=== PATIENT | male | born 1955 | race Caucasian/White ===

== ENCOUNTER → 2016-12-02 | Outpatient (CLI) | payer OTHER ==
[2016-12-02 10:09] LABS: CH 33.9; CHCM 36.9; HDW 3.01; HGB 14.9 gm/dL (13.0-17.5); MCH 32.8 pg (25.0-35.0); MCHC 35.6 g/dL (31.0-37.0); MCV 92.4 fL (80.0-100.0); Mean Platelet Volume 8.5; RBC 4.55 m/uL (4.30-5.90); RDW 14.2 % (11.5-15.5)
[2016-12-02 10:26] LABS: Anion Gap 10 mmol/L; Blood Urea Nitrogen 12 mg/dL (9-20); Carbon Dioxide 25 mmol/L (22-30); Chloride 105 mmol/L (98-107); Non-African American GFR(MDRD) >60 (>60 ml/min/1.73 sqM); Potassium 4.6 mmol/L (3.5-5.1); Sodium 140 mmol/L (137-145)
== END | disposition home or self-care (01) ==
LOC: LABPAT 09:42
PROVIDERS: ATTEND Internal Medicine Interventional Cardiology
DX: Z01.812 Encounter for preprocedural laboratory examination (principal); I25.10 Atherosclerotic heart disease of native coronary artery without angina pectoris
CPT/HCPCS: 36415; 80051; 82565; 84520; 85027

== ENCOUNTER → 2016-12-05 | Day surgery (SDC) | payer OTHER ==
[2016-11-29 12:57] VITALS: BMI 32.6
[~2016-12-05] MED LIST: ALPRAZolam 0.25 MG TAB PO PRN; ALPRAZolam 0.5 MG TAB PO PRN; ASPIRIN 325 MG TAB PO STA; ATORVASTATIN 40 MG TAB PO SCH; ATORVASTATIN 80 MG TAB PO STA; HEPARIN SODIUM 1,000 UN/ML (10ML VL) ONE; INSULIN LISPRO (humaLOG) 300 UNIT/3 ML VIAL SQ SCH; IOHEXOL 350 MG/ML 125ML BOTTLE INJ ONE; LIDOCAINE 2% INJ 20 MG/ML (20 ML MDV) ONE; LIDOCAINE 2% INJ 20 MG/ML SQ ONE; LISINOPRIL 10 MG TAB PO SCH; METOPROLOL SUCCINATE (ER) 50 MG TAB.ER.24H PO SCH; NITROGLYCERIN SL TABS 0.4 MG TAB SUBLINGUAL PRN; NON-FORMULARY DRUG (Aspirin [Adult Low Dose Aspirin Ec] 81 MG) PO SCH; RX INFO: IV CONTRAST WAS GIVEN 1 EACH MISC MISCELLANE PRN; SODIUM CHLORIDE 0.9% 1,000 ML IV SCH; SODIUM CHLORIDE 0.9% 1,000 ML in EMPTY BAG 1 BAG IV ONE; VERAPAMIL 2.5 MG/ML 2 ML AMP ONE; VERAPAMIL SYRINGE (5 MG/10 ML) INTRAARTER ONE; amLODIPine 5 MG TAB PO SCH; diphenhydrAMINE 50 MG/ML 1 ML VIAL IVP ONE; diphenhydrAMINE 50 MG/ML 1 ML VIAL ONE; fentaNYL (PF) 50 MCG/ML 2 ML AMP IV ONE; fentaNYL (PF) 50 MCG/ML 2 ML AMP ONE
[2016-12-05 07:02] VITALS: RESP 18; TEMP 98.4
[2016-12-05 07:12] LABS: Glucose,Whole Blood 222 mg/dL (75-99)
[2016-12-05 12:27] VITALS: BP 120/67; PULSE 54
--- NOTE | 2016-12-05 23:24 | CC ---
Mr. Whiting is a 61-year-old male with a known history of mild coronary artery disease, hypertension, hyperlipidemia, who has recently been complaining of progressive dyspnea on exertion. In view of that, recommendation was made regarding cardiac catheterization. The procedure as well as risks and complications was discussed with the patient, who was in full understanding and agreement. PROCEDURE: Patient was brought to the oven laborer in fasting, semi-sedated state after receiving fentanyl and Benadryl and achieving moderate conscious sedated state. Using Xylocaine anesthesia and Seldinger technique, a 6 Samoan sheath was introduced in the right radial artery. Selective right and left coronary angiography was performed using 5 Samoan, 3-1/2 Bend, right and left Sandi catheters. Multiple views were taken of the arteries, including hemiaxial views. Following that, a 5 Samoan tight pigtail catheter was introduced in the left ventricle, and a 30-degree NICHOLAS view of the left ventricle was obtained. Following that, catheter and sheath were removed. Hemostasis was attained with deployment of a TR band. There was no immediate complication. Patient was returned to his room in stable condition. Patient received 5000 units of intravenous heparin as well as intra-arterial Verapamil. FINDINGS: LEFT MAIN: This is a large-sized vessel trifurcating into left circumflex, left anterior descending artery and ramus intermedius. Left main coronary artery is without any significant obstructive disease. LEFT ANTERIOR DESCENDING ARTERY: This is a large-sized vessel reaching toward the apex with a wrap around the apex segment giving rise to a large first diagonal branch. The LAD prior to the takeoff of the diagonal branch has a 30% to 40% plaque, and the takeoff of the diagonal branch has a 30% plaque. The rest of the vessel has no high-grade stenosis. LEFT CIRCUMFLEX: This is a non-dominant vessel giving rise to a large obtuse marginal branch. The left circumflex as well as its branches has no evidence of obstructive coronary artery disease. RAMUS INTERMEDIUS: This is a large-sized vessel reaching toward the apicolateral wall. The ramus intermedius as well as its branches has no evidence of obstructive coronary artery disease. RIGHT CORONARY ARTERY: This is a large dominant vessel bifurcating distally into PDA and posterolateral segment and branches. The right coronary artery as well as its branches has no evidence of obstructive coronary artery disease. LEFT VENTRICULOGRAM: Left ventriculogram was performed in 30-degree NICHOLAS view and revealed normal left ventricular size and systolic function. Ejection fraction is 60%. There was no significant mitral regurgitation. HEMODYNAMICS: There was no gradient across the aortic valve. The left ventricular end-diastolic pressure was 18 mmHg. CONCLUSION: 1. Mild to moderate disease in the proximal LAD and involving the takeoff of the first diagonal branch. 2. Normal left ventricular size and systolic function. RECOMMENDATIONS: In view of findings and anatomy, I have recommended continued medical therapy with aggressive coronary risk modifications that have been initiated. Those findings and recommendations were discussed with the patient and his family, and they are in full understanding and agreement. ARIN
--- NOTE | 2016-12-05 23:34 | MISC ---
LETTER December 05, 2016 RE: Víctor Whiting (57) Dear Dr. Codey Magdaleno, I had the pleasure of performing cardiac catheterization on Mr. Whiting at [facility] on December 05, 2016. A full copy of the procedure note will be forwarded to you. In brief, he was found to have mild to moderate disease involving the proximal LAD with a normal left ventricular size and systolic function. In view of that, I have recommending continued medical therapy with the aggressive coronary risk modifications you have initiated. Thank you again for allowing me to participate in this patient's care. Please feel free to call with any questions. Sincerely, Neha Pedraza M.D. ARIN
== END | disposition home or self-care (01) ==
LOC: CATHCVL 06:36
PROVIDERS: ATTEND Internal Medicine Interventional Cardiology
DX: I25.118 Atherosclerotic heart disease of native coronary artery with other forms of angina pectoris (principal); I10 Essential (primary) hypertension; E78.2 Mixed hyperlipidemia; E11.9 Type 2 diabetes mellitus without complications; Z79.84 Long term (current) use of oral hypoglycemic drugs; Z82.49 Family history of ischemic heart disease and other diseases of the circulatory system; Z88.8 Allergy status to other drugs, medicaments and biological substances
CPT/HCPCS: 93458; 99152; 99153; C1894; C1769; J2001; J1200; J3010; J1644; Q9967

== ENCOUNTER → 2017-03-04 | Outpatient (CLI) | payer OTHER ==
[2017-03-04 14:58] LABS: Basophils # (A) 0.1 k/uL (0-0.2); Basophils % (A) 1 %; CH 32.7; CHCM 35.1; Eosinophils # (A) 0.2 k/uL (0-0.7); Eosinophils % (A) 3 %; HCT 44.1 % (39.0-53.0); HDW 2.83; HGB 14.8 gm/dL (13.0-17.5); Luc # (Auto) 0.14; Luc % (Auto) 2; Lymphocytes # (A) 2.7 k/uL (1.0-4.8); Lymphocytes % (A) 33 %; MCH 31.5 pg (25.0-35.0); MCHC 33.6 g/dL (31.0-37.0); MCV 93.7 fL (80.0-100.0); Mean Platelet Volume 7.9; Monocytes # (A) 0.5 k/uL (0-1.0); Monocytes % (A) 6 %; Neutrophils # (A) 4.6 k/uL (1.3-7.7); Neutrophils % (A) 56 %; RDW 14.3 % (11.5-15.5); WBC 8.2 k/uL (3.8-10.6); WBC (Perox) 8.42
[2017-03-04 15:05] LABS: Potassium 4.8 mmol/L (3.5-5.1)
== END | disposition home or self-care (01) ==
LOC: LABPAT 13:59
PROVIDERS: ATTEND Orthopaedic Surgery
DX: Z01.810 Encounter for preprocedural cardiovascular examination (principal); M23.92 Unspecified internal derangement of left knee
CPT/HCPCS: 36415; 80051; 85025

== ENCOUNTER 2017-03-06 11:18 | Day surgery (SDC) | payer OTHER ==
[2017-03-03 13:31] VITALS: BMI 31.9
--- NOTE | 2017-03-05 15:23 | HP ---
HISTORY AND PHYSICAL REASON FOR ADMISSION: Surgery is 03/06/2017. HISTORY OF PRESENT ILLNESS: Víctor Whiting is a 61-year-old patient seen with progressive left knee pain. We discussed options. He elected to proceed with arthroscopy. Consent was obtained. PAST MEDICAL HISTORY: Hyperlipidemia, hypertension, [id number] diabetes. PAST SURGICAL HISTORY: Herniorrhaphy, right knee arthroscopy, cataract surgery, sinus surgery. MEDICATIONS: Amlodipine, aspirin, atorvastatin, lisinopril, metformin, metoprolol. ALLERGIES: COMPAZINE. SOCIAL HISTORY: Patient denies current tobacco use. PHYSICAL EXAMINATION: Evaluation left knee range of motion 0-120 degrees. There is a mild effusion. Tenderness medial joint line. Positive medial Paco's. Ligaments are stable. Hip rotation is without pain. Distal neurovascular exam is intact. RADIOGRAPHS: Of the left knee revealed moderate osteoarthritis. MRI left knee revealed osteoarthritis and a chondral injury. IMPRESSION: Internal derangement left knee with osteochondral tear. PLAN: Left knee arthroscopy with chondroplasty, possible partial meniscectomy and debridement. Surgery 03/06/2017. MMODL / IJN: [id number] /
[~2017-03-06 11:18] MED LIST changes: -ALPRAZolam 0.25 MG TAB PO PRN; -ALPRAZolam 0.5 MG TAB PO PRN; -ASPIRIN 325 MG TAB PO STA; -ATORVASTATIN 40 MG TAB PO SCH; -ATORVASTATIN 80 MG TAB PO STA; +DEXAMETHASONE SOD PHOSPHATE 10 MG/ML 1 ML VIAL IV ONE; -HEPARIN SODIUM 1,000 UN/ML (10ML VL) ONE; +HYDROmorphone 1 MG/ML 1 ML SYRINGE IVP PRN; -INSULIN LISPRO (humaLOG) 300 UNIT/3 ML VIAL SQ SCH; -IOHEXOL 350 MG/ML 125ML BOTTLE INJ ONE; +LACTATED RINGERS 1,000 ML IV SCH; -LIDOCAINE 2% INJ 20 MG/ML (20 ML MDV) ONE; -LIDOCAINE 2% INJ 20 MG/ML SQ ONE; -LISINOPRIL 10 MG TAB PO SCH; -METOPROLOL SUCCINATE (ER) 50 MG TAB.ER.24H PO SCH; +MIDAZOLAM 2 MG/2 ML VIAL IV PRN; -NITROGLYCERIN SL TABS 0.4 MG TAB SUBLINGUAL PRN; -NON-FORMULARY DRUG (Aspirin [Adult Low Dose Aspirin Ec] 81 MG) PO SCH; +ONDANSETRON 4 MG/2 ML VIAL IVP ONE; -RX INFO: IV CONTRAST WAS GIVEN 1 EACH MISC MISCELLANE PRN; +SCOPOLAMINE 1.5MG/72HR PATCH TRANSDERM ONE; -SODIUM CHLORIDE 0.9% 1,000 ML IV SCH; -SODIUM CHLORIDE 0.9% 1,000 ML in EMPTY BAG 1 BAG IV ONE; -VERAPAMIL 2.5 MG/ML 2 ML AMP ONE; -VERAPAMIL SYRINGE (5 MG/10 ML) INTRAARTER ONE; -amLODIPine 5 MG TAB PO SCH; +ceFAZolin IN SWFI 2 GM/20 ML SYRINGE IVP ONE; -diphenhydrAMINE 50 MG/ML 1 ML VIAL IVP ONE; -diphenhydrAMINE 50 MG/ML 1 ML VIAL ONE; -fentaNYL (PF) 50 MCG/ML 2 ML AMP IV ONE; -fentaNYL (PF) 50 MCG/ML 2 ML AMP ONE
[2017-03-06] MEDS ORDERED: LIDOCAINE 1% 20 ML VIAL (10MG/ML) FOR IV START INTRADERMA ONE (11:39)
[2017-03-06 11:53] LABS: Glucose,Whole Blood 234 mg/dL (75-99)
[2017-03-06] MEDS ORDERED: INSULIN ASPART 100 UNIT/ML 1 ML 10 ML VIAL SQ ONE (12:01)
[2017-03-06] MEDS ORDERED: fentaNYL (PF) 50 MCG/ML 2 ML AMP ONE (12:03)
[2017-03-06] MEDS ORDERED: SUCCINYLCHOLINE CHLORIDE 100 MG/5 ML SYR IV ONE (12:03)
[2017-03-06] MEDS ORDERED: PROPOFOL 10 MG/ML 20 ML VIAL IV ONE (12:03)
[2017-03-06] MEDS ORDERED: MIDAZOLAM 2 MG/2 ML VIAL ONE (12:03)
[2017-03-06] MEDS ORDERED: BUPIVACAINE (PF) 0.25% 30 ML VIAL INTRAARTIC ONE ×2 (12:03→12:44)
[2017-03-06] MEDS ORDERED: LIDOCAINE 1% INJ 10MG/ML (20 ML MDV) ONE (12:03)
--- NOTE | 2017-03-06 13:00 | P.OP ---
Date of Procedure: 03/06/17 Preoperative Diagnosis: Internal derangement left knee Postoperative Diagnosis: 1. Tear medial and lateral meniscus left knee 2. Grade 4 chondromalacia medial femoral condyle left knee 3. Grade 4 chondromalacia patella left knee 4. Reactive synovitis medial, lateral and suprapatellar compartments left knee Procedure(s) Performed: 1. Arthroscopic partial medial and lateral meniscectomy left knee 2. Arthroscopic chondroplasty medial femoral condyle left knee 3. Arthroscopic chondroplasty patella left knee 4. Arthroscopic partial synovectomy medial, lateral and suprapatellar compartments left knee Implants: None Anesthesia: GETA, local Surgeon: Jarred Contreras Estimated Blood Loss (ml): 5 Pathology: none sent Condition: stable Disposition: PACU Indications for Procedure: 61-year-old patient seen with progressive left knee pain. After having treatment options discussed, he elected to proceed with arthroscopy. Operative Findings: see description of procedure Description of Procedure: Patient was taken to the operative suite. Patient underwent a general anesthetic by the department of anesthesia. Patient was given preoperative antibiotics. The left lower extremity was placed in a well-padded arthroscopic leg heath. The left leg was prepped and draped in the normal sterile orthopedic fashion. A lateral parapatellar and suprapatellar incision was made. Trochars were inserted. Arthroscopy was initiated. Suprapatellar pouch revealed diffuse thick reactive synovitis. The patellofemoral joint appeared to articulate congruently. There was grade 4 chondromalacia of the patella with osteochondral tears and grade 4 chondral malacia of the femoral sulcus with exposed bone. The scope was guided into the medial gutter. No loose bodies or plica were identified. The scope was then guided into the medial compartment. A medial parapatellar incision was made. Trocar inserted followed by probe. There was a complex tear posterior horn medial meniscus. There were grade 3 and 4 chondromalacia changes of the medial femoral condyle with diffuse osteochondral tears present. There were grade 2 chondral malacia changes of the medial tibial plateau. Reactive synovitis was noted anteriorly. I performed a partial medial meniscectomy down to stable tissue. A chondroplasty of the medial femoral condyle was performed on a stable tissue followed by partial synovectomy. The residual meniscus was stable as was the residual osteochondral surface medial femoral condyle. Scope and probe were then guided into the intercondylar notch. Cruciates were identified, probed and found to be stable. The scope and probe were then guided into lateral compartment. There was a complex tear lateral meniscus involving the posterior horn and midbody as well as some diffuse radial tears anteriorly. There were grade 1 chondromalacia changes of the lateral femoral condyle but no osteochondral tears. Reactive synovitis anteriorly. I performed a partial lateral meniscectomy down to stable tissue. I performed a partial synovectomy. The residual meniscus was stable. The scope was in guided back into the suprapatellar compartment. I introduced a motorized shaver into the super patellar compartment. I debrided some piecemeal fragments of meniscus. I performed a chondroplasty of the patella down to stable tissue. I performed a partial synovectomy. The shaver was removed. I took one more look around the entire knee, no residual debris. Instruments were now removed from the joint. The joint was infiltrated with .25% Marcaine. Steri-Strips were applied to the portal sites. Sterile dressings were applied. The patient was placed into a JACKIE hose. No tourniquet was utilized. The patient was awakened, transferred to a bed and taken to recovery stable satisfactory condition.
[2017-03-06 13:08] VITALS: TEMP 97
[2017-03-06 13:13] LABS: Glucose,Whole Blood 186 mg/dL (75-99)
[2017-03-06 14:17] VITALS: RESP 18
[2017-03-06] MEDS ORDERED: HYDROcodone/APAP 5-325MG 1 EACH TAB PO ONE (14:30)
[2017-03-06 14:39] VITALS: BP 139/76; PULSE 73
== END 2017-03-06 15:11 | disposition home or self-care (01) ==
LOC: OR 11:18
PROVIDERS: ATTEND Orthopaedic Surgery
DX: S83.232A Complex tear of medial meniscus, current injury, left knee, initial encounter (principal); S83.272A Complex tear of lateral meniscus, current injury, left knee, initial encounter; X58.XXXA Exposure to other specified factors, initial encounter; M94.262 Chondromalacia, left knee; M22.42 Chondromalacia patellae, left knee; M65.862 Other synovitis and tenosynovitis, left lower leg; M25.462 Effusion, left knee; M17.12 Unilateral primary osteoarthritis, left knee; E78.5 Hyperlipidemia, unspecified; I10 Essential (primary) hypertension; E11.9 Type 2 diabetes mellitus without complications; I25.10 Atherosclerotic heart disease of native coronary artery without angina pectoris; G47.30 Sleep apnea, unspecified; Z79.84 Long term (current) use of oral hypoglycemic drugs; Z79.82 Long term (current) use of aspirin; Z79.899 Other long term (current) drug therapy; Z88.8 Allergy status to other drugs, medicaments and biological substances
CPT/HCPCS: 29880; J2250; J1100; J2405; J2001; J3010; J0330; J2704

== ENCOUNTER → 2017-08-29 | Outpatient (CLI) | payer BC ==
--- NOTE | 2017-08-29 12:41 | CT ---
EXAMINATION TYPE: CT soft tissue neck wo con DATE OF EXAM: 08/29/2017 HISTORY: Patient complains of left submandibular neck pain (marked by BB). COMPARISON: NONE CT DLP: 719 mGycm. Automated Exposure Control for Dose Reduction was Utilized. TECHNIQUE: CT scan of the neck is performed without contrast, axial images are obtained, coronal and sagittal reformatted images are reviewed. FINDINGS: Evaluation is suboptimal due to lack of enteric contrast was limits evaluation for subtle m ucosal lesions as well as adenopathy. A metallic BB is placed at level of palpable abnormality left submandibular region axial image 50. No worrisome solid or cystic mass or fluid collection is seen at this level. There are some prominent b ut subcentimeter lymph nodes seen adjacent to bilateral submandibular glands. Airway: There is some prominence of the adenoid tonsils in the posterior nasopharynx and prominence o f the palatine tonsils in the posterior oropharynx. Oral pharyngeal airway is patent. Region of epigl ottis and vallecula appears within normal limits. Perform sinuses are felt symmetric and unremarkable . Thyroid gland shows 5 mm calcified nodule right aspect coronal image 51. Trachea is intact. There i s calcified 4 mm nodule posterior right upper lobe axial image 79. Finding presumed on basis of old g ranulomatous disease. Parotid/submandibular glands: Parotid and submandibular glands are symmetric and felt within normal limits. Metallic BB is near level of left submandibular gland. Carotid/Vascular Structures: No significant calcified plaque at carotid bulb level bilaterally. Osseous Structures: There is marked reversal of normal cervical curvature centered mid cervical spine . There is moderate disc space narrowing and spurring C5-C6 level with posterior calcified disc herni ation effacing anterior thecal sac. Other: There is moderate to severe mucosal thickening in the maxillary sinuses. There is evidence of prior surgery at level ostiomeatal complexes. Streak artifact from cavitary fillings is present. There are scattered prominent but subcentimeter lymph nodes throughout the neck. There is no suspicio us greater than 1 cm neck adenopathy identified IMPRESSION: No suspicious mass or adenopathy is seen on noncontrast study to account for patient's s ymptoms of left-sided pain
== END | disposition home or self-care (01) ==
LOC: RADCTMAIN 12:09
PROVIDERS: ATTEND Family Medicine
DX: M54.2 Cervicalgia (principal); R22.1 Localized swelling, mass and lump, neck
CPT/HCPCS: 70490

== ENCOUNTER → 2019-06-08 | Outpatient (CLI) | payer BC ==
--- NOTE | 2019-06-08 08:40 | US ---
EXAMINATION TYPE: US kidneys/renal and bladder DATE OF EXAM: 06/08/2019 COMPARISON: NONE CLINICAL HISTORY: N20.0 Calculus of kidney. History of kidney stones EXAM MEASUREMENTS: Right Kidney: 11.0 x 5.4 x 5.6 cm Left Kidney: 9.9 x 5.6 x 4.6 cm Right Kidney: no evidence of hydronephrosis Left Kidney: cyst upper pole = 0.8 x 0.8cm, probable stone upper pole = 0.6cm Bladder: appears wnl Bilateral Jets seen: no There is no evidence for hydronephrosis at this point in time. IMPRESSION: 1. Nonobstructing nephrolithiasis left kidney. 2. Simple appearing cyst upper pole left kidney.
--- NOTE | 2019-06-08 12:33 | XR ---
KUB HISTORY: Calculus of kidney On KUB submitted on 2 images There are calcifications within the pelvis which may represent phleboliths. Lung bases are clear. The re is no evident bowel obstruction or pneumoperitoneum. Bone mineralization is normal. Bowel gas may obscure detail. IMPRESSION: Nonobstructive bowel gas pattern.
== END | disposition home or self-care (01) ==
LOC: RADUSWWP 06:57
PROVIDERS: ATTEND Surgery
DX: N20.0 Calculus of kidney (principal); N28.1 Cyst of kidney, acquired
CPT/HCPCS: 74018; 76770

== ENCOUNTER → 2020-04-10 | Outpatient (CLI) | payer BC ==
--- NOTE | 2020-04-10 12:24 | US ---
EXAMINATION TYPE: US thyroid st tissue head/neck DATE OF EXAM: 04/10/2020 COMPARISON: NONE CLINICAL HISTORY: R22.1 swelling, R52 pain. intermittent right neck swelling and pain GLAND SIZE: Right Lobe: 5.8 x 2.0 x 2.0 cm Overall Parenchyma: homogenous Left Lobe: 4.2 x 1.8 x 1.8 cm Overall Parenchyma: homogeneous Isthmus Thickness: 0.4 cm NODULES RIGHT: # of nodules measured on right: 1. 0.4 X 0.3 cm calcification LEFT: # of nodules measured on left: 0 ISTHMUS: # of nodules measured in the isthmus: 0 Bilateral neck scanned, normal appearing lymph nodes with largest = 1.1cm on the right IMPRESSION: Focal calcification right thyroid lobe. Otherwise unremarkable study.
== END | disposition home or self-care (01) ==
LOC: RADUSWWP 11:49
PROVIDERS: ATTEND Family Medicine
DX: R22.1 Localized swelling, mass and lump, neck (principal)
CPT/HCPCS: 76536

== ENCOUNTER → 2020-07-10 | Outpatient (CLI) | payer BC ==
--- NOTE | 2020-07-10 15:48 | XR ---
EXAMINATION TYPE: XR KUB DATE OF EXAM: 07/10/2020 COMPARISON: 06/08/2019 HISTORY: Pain kidney stone TECHNIQUE: One view abdominal series FINDINGS: The osseous structures are intact. The bowel gas pattern is nonspecific. Stable calcification the right hemipelvis likely vascular. Renal outlines: No suspicious calcifications overlying the right or left renal outline. The bowel con tent does obscure portions of the outline. IMPRESSION: 1. No definite suspicious calcification.
== END ==
LOC: RADXRMAIN 14:55
PROVIDERS: ATTEND Surgery
DX: N20.0 Calculus of kidney (principal)
CPT/HCPCS: 74018

== ENCOUNTER → 2020-07-31 | Outpatient (CLI) | payer BC ==
--- NOTE | 2020-07-31 09:02 | US ---
EXAMINATION TYPE: US thyroid st tissue head/neck DATE OF EXAM: 07/31/2020 COMPARISON: 04/10/2020 CLINICAL HISTORY: 64-year-old male E04.1 Nontoxic single thyroid nodule. Follow-up exam. TECHNIQUE: Multiple sonographic images of the thyroid gland are obtained. FINDINGS: GLAND SIZE: Right Lobe: 5.5 x 2.0 x 2.0 cm Overall Parenchyma: homogenous Left Lobe: 4.5 x 1.8 x 1.9 cm Overall Parenchyma: homogeneous Isthmus Thickness: 0.3 cm NODULES RIGHT: # of nodules measured on right: 1 1. 0.4 X 0.3 x 0.2 cm, mid , solid or almost completely solid, hyperechoic nodule, which is wider t mauro tall, with smooth margins. Prior size: 0.4 x 0.3cm LEFT: # of nodules measured on left: 0 ISTHMUS: # of nodules measured in the isthmus: 0 Programming Engineer notes: Right lateral neck lymph node seen appears smaller then previous exam at 0.7 x 0.6 x 0.4cm (versus 1.1 cm, previously). IMPRESSION: Borderline thyromegaly. Solitary calcified 4 mm nodule on the right is unchanged. Decreasing size of lymph nodes along the right side of the neck, currently nonenlarged.
== END | disposition home or self-care (01) ==
LOC: RADUSWWP 06:55
PROVIDERS: ATTEND Otolaryngology
DX: E01.0 Iodine-deficiency related diffuse (endemic) goiter (principal)
CPT/HCPCS: 76536

== ENCOUNTER 2020-11-20 06:45 | Emergency (ER) | payer BC ==
[2020-11-20 06:52] VITALS: TEMP 98.5
--- NOTE | 2020-11-20 07:31 | ED ---
ENT HPI - General Chief complaint: ENT Stated complaint: poss FB in throat Time Seen by Provider: 11/20/20 07:05 Source: patient, RN notes reviewed Mode of arrival: ambulatory Limitations: no limitations - History of Present Illness Initial comments: This is a 65-year-old male with a prior history of any GI abnormalities states she was eating a club sandwich yesterday he believes he swallowed toothpick he has been having intermittent midsternal pain since then. None at this time no shortness breath fevers chills nausea vomiting sweats he states when he swallows though he has increased pain. He's not able to clear it. He states his abdomen his abdomen in his throat is no other complaints or concerns at this time - Related Data Home Medications Medication Instructions Recorded Confirmed Aspirin [Adult Low Dose Aspirin EC] 81 mg PO DAILY 11/29/16 11/20/20 amLODIPine [Norvasc] 5 mg PO BID 11/29/16 11/20/20 lisinopriL [Zestril] 10 mg PO BID 11/29/16 11/20/20 Metoprolol Succinate (ER) [Toprol 50 mg PO DAILY 11/20/20 11/20/20 Xl] Rosuvastatin Calcium [Crestor] 20 mg PO HS 11/20/20 11/20/20 metFORMIN HCL [Glucophage] 1,000 mg PO BID 11/20/20 11/20/20 Allergies Allergy/AdvReac Type Severity Reaction Status Date / Time prochlorperazine AdvReac SEVERE Verified 11/20/20 09:25 [From Compazine] SHAKING Review of Systems ROS Statement: Those systems with pertinent positive or pertinent negative responses have been documented in the HPI. ROS Other: All systems not noted in ROS Statement are negative. Past Medical History Past Medical History: Diabetes Mellitus, Hyperlipidemia, Hypertension Additional Past Medical History / Comment(s): "small blockage in front of heart" History of Any Multi-Drug Resistant Organisms: None Reported Past Surgical History: Hernia Repair, Orthopedic Surgery Additional Past Surgical History / Comment(s): SLEEP APNEA SX. COLONOSCOPY. BILAT CATARACT SX. SINUS SX X 2. RT KNEE SCOPE. LT knee Past Anesthesia/Blood Transfusion Reactions: Previous Problems w/ Anesthesia Additional Past Anesthesia/Blood Transfusion Reaction / Comment(s): pt states had one incident of difficulty with airway with anesthesia no problems since with surgeries Past Psychological History: No Psychological Hx Reported Smoking Status: Never smoker Past Alcohol Use History: None Reported Past Drug Use History: None Reported - Past Family History Mother Family Medical History: No Reported History General Exam - General Exam Comments Initial Comments: This is a well-developed well-nourished awake alert oriented x 3 male Limitations: no limitations General appearance: alert, in no apparent distress Head exam: Present: atraumatic, normocephalic, normal inspection Eye exam: Present: normal appearance, PERRL, EOMI. Absent: scleral icterus, conjunctival injection, periorbital swelling ENT exam: Present: normal exam, mucous membranes moist Neck exam: Present: normal inspection. Absent: tenderness, meningismus, lymphadenopathy Respiratory exam: Present: normal lung sounds bilaterally. Absent: respiratory distress, wheezes, rales, rhonchi, stridor Cardiovascular Exam: Present: regular rate, normal rhythm, normal heart sounds. Absent: systolic murmur, diastolic murmur, rubs, gallop, clicks GI/Abdominal exam: Present: soft, normal bowel sounds. Absent: distended, tenderness, guarding, rebound, rigid Extremities exam: Present: normal inspection, full ROM, normal capillary refill. Absent: tenderness, pedal edema, joint swelling, calf tenderness Back exam: Present: full ROM Neurological exam: Present: alert, oriented X3, CN II-XII intact Psychiatric exam: Present: normal affect, normal mood Skin exam: Present: warm, dry, intact, normal color. Absent: rash Course Vital Signs 11/20/20 11/20/20 11/20/20 06:48 08:55 10:51 Temperature 98.5 F Pulse Rate 66 60 60 Respiratory 18 18 18 Rate Blood Pressure 169/80 144/83 152/89 O2 Sat by Pulse 97 95 95 Oximetry 11/20/20 13:07 Temperature Pulse Rate 58 L Respiratory 18 Rate Blood Pressure 152/81 O2 Sat by Pulse 97 Oximetry - Reevaluation(s) Reevaluation #1: 11/20/20 08:29 I did discuss case the patient has . Discussed the initial findings with Dr. Uriarte. Patient will get a CT of the chest followed by endoscopy Reevaluation #2: 11/20/20 12:46 The patient is resting comfortably he will be going to endoscopy at 2 PM. Medical Decision Making - Medical Decision Making The patient remains symptomatic with intermittent episodes of sharp mid sternal chest pain he is scheduled for a 2 PM endoscopy. - EKG Data -: EKG Interpreted by Me EKG shows normal: sinus rhythm, axis, intervals, QRS complexes, ST-T waves (Normal sinus rhythm a 64. Interval 180 QRS duration 86 QT since QTC 390/[address]-T wave changes) Rate: normal - Radiology Data Radiology results: report reviewed (Imaging reviewed and no evidence of acute foreign body or perforation.), image reviewed Disposition Clinical Impression: Esophageal foreign body, Atypical chest pain Disposition: HOME SELF-CARE Condition: Stable Instructions (If sedation given, give patient instructions): Esophageal Foreign Body (ED) Is patient prescribed a controlled substance at d/c from ED?: No Referrals: Nonstaff,Physician [Primary Care Provider] - 1-2 days
--- NOTE | 2020-11-20 07:58 | XR ---
EXAMINATION TYPE: XR chest 2V DATE OF EXAM: 11/20/2020 COMPARISON: None HISTORY: 65-year-old male chest pain and possible foreign body TECHNIQUE: PA and lateral views FINDINGS: The cardiomediastinal silhouette, aorta, and pulmonary vasculature are within normal limits. Lungs an d pleural spaces are clear. No retained radiopaque foreign body is seen. IMPRESSION: No acute cardiopulmonary process. No retained radiopaque foreign body is clearly identified.
--- NOTE | 2020-11-20 07:58 | XR ---
EXAMINATION TYPE: XR KUB DATE OF EXAM: 11/20/2020 COMPARISON: NONE HISTORY: Pain TECHNIQUE: Single supine KUB image of the abdomen is obtained FINDINGS: Small bowel demonstrates no evidence for dilatation or air fluid levels. Gas and fecal material is seen in non-distended colon. No convincing evidence for pneumoperitoneum. No unusual calcifications. The lung bases are clear. The osseous structures are intact. IMPRESSION: 1. Overall nonobstructive bowel gas pattern.
--- NOTE | 2020-11-20 09:33 | CT ---
EXAMINATION TYPE: CT ChestAbdPelvis wo con DATE OF EXAM: 11/20/2020 COMPARISON: None HISTORY: esophageal foreign body, toothpick CT DLP: 836.3mGycm Unenhanced CT of the Chest, Abdomen and Pelvis Unenhanced CT of the chest ,abdomen and pelvis is performed. The lack of intravenous contrast limits evaluation of the solid and hollow viscera. Oral contrast: None CT Chest: LUNGS: The lungs are clear and free of infiltrate or atelectasis. No pulmonary nodule or mass is det ected. No pleural effusion or CT evidence of interstitial lung disease. MEDIASTINUM: No visible radiopaque esophageal foreign body. Soft tissues appears to be grossly intac t without evidence of perforation. Thoracic aorta is of normal caliber. The heart is not enlarged. No evidence for mediastinal mass or adenopathy. HILAR STRUCTURES: No evidence for mass. No hilar adenopathy is appreciated. OTHER: No significant abnormality. CONTRAST CT ABDOMEN AND PELVIS: LIVER/GB: No calcified gallstones. No space occupying hepatic lesion. Biliary tree is of normal ca liber. PANCREAS: No inflammation. No distinct mass. SPLEEN: No splenic enlargement. No lesion seen. ADRENALS: No nodule. No thickening. KIDNEYS/BLADDER: No hydronephrosis. No nephrolithiasis. No disctinct renal mass. BOWEL: Normal appendix. Normal bowel caliber. No inflammation. GENITAL ORGANS: No gross abnormality. LYMPH NODES: No greater than 1cm abdominal or pelvic lymph nodes areappreciated. AORTA: No significant abnormality. OSSEOUS STRUCTURES: No significant abnormality is seen. OTHER: No significant additional abnormality is seen. IMPRESSION: 1. No visible radiopaque foreign body identified within the esophagus or gastrointestinal tract altho ugh a wooden toothpick may be difficult to visualize. No evidence for esophageal perforation.
[2020-11-20] MEDS ORDERED: PROPOFOL 10 MG/ML 20 ML VIAL IV ONE (14:01)
[2020-11-20] MEDS ORDERED: SODIUM CHLORIDE 0.9% 500 ML 500 ML IV ONE ×2 (14:13)
--- NOTE | 2020-11-20 14:24 | P.PCN ---
Date of Procedure: 11/20/20 Procedure(s) Performed: BRIEF HISTORY: Patient is a 65-year-old, pleasant, white male in the emergency room with chest pain and odynophagia after eating chicken sandwich with a toothpick yesterday evening. CT of the chest was unremarkable. He scheduled for an upper endoscopy to evaluate further.. PROCEDURE PERFORMED: Esophagogastroduodenoscopy with biopsy. PREOPERATIVE DIAGNOSIS: Odynophagia. IV sedation per anesthesia. PROCEDURE: After informed consent was obtained, the patient was brought into the endoscopy unit. IV sedation was administered by Anesthesia under continuous monitoring. Initially the Olympus GIF-140 video endoscope was inserted into the mouth. Esophagus intubated without any difficulty. It was gradually advanced into the stomach and duodenum and carefully examined. The bulb and the second part of the duodenum appeared normal. The scope at this time was withdrawn to the stomach, adequately insufflated with air, and upon careful examination, mucosa of the antrum, body, cardia and the fundus appeared normal. Multiple small gastric polyps were noted which were biopsied. The scope was then withdrawn into the esophagus. The GE junction was located at 39 cm from the incisors. The esophagus appeared normal. There were no erosions or ulcerations seen and the patient tolerated the procedure well. IMPRESSION: 1. Normal-appearing esophagus with no evidence of esophageal foreign body or mucosal pathology. 2. Multiple small gastric polyps status post biopsy. RECOMMENDATIONS: The findings of this examination were discussed with the patient as well as his family. Follow with the biopsy results. He was advised to resume regular diet following discharge from the hospital..
[2020-11-20 14:34] VITALS: RESP 16
[2020-11-20 18:37] VITALS: BP 152/81; PULSE 58
--- NOTE | 2020-11-20 21:48 | CONS ---
CONSULTATION DATE OF SERVICE: 11/20/2020 REQUESTING PHYSICIAN: Dr. Víctor Morrow. REASON FOR CONSULTATION: Chest pain and odynophagia. HISTORY OF PRESENT ILLNESS: The patient is a 65-year-old pleasant white male with history of hypertension and diabetes mellitus. Came into the emergency room early this morning complaining of some chest pain after he ate a sandwich with a to pick for dinner last night. After eating the sandwich and part of the toothpick he started having some sensation of a pricking sensation in the midsternal area that has been intermittent on and off. He tried to drink some water with no problems. However, he continued to have intermittent chest discomfort and hence came into the emergency room early this morning and subsequently we are consulted for possible endoscopy. The patient continues to have intermittent pricking-like sensation in his mid chest area on and off, but has been slowly getting better. In the ER he did have a CT of the chest done that was unremarkable. Chest x- rays were also unremarkable. He never had these symptoms in the past. He reports no fever, chills, night sweats. PAST MEDICAL HISTORY: Significant for hypertension, diabetes mellitus, and hyperlipidemia. MEDICATIONS: At home, Crestor, Toprol, Glucophage, Zestril, Norvasc, and aspirin. ALLERGIES: COMPAZINE. SOCIAL HISTORY: No smoking, no alcohol use. FAMILY HISTORY: Unremarkable. REVIEW OF SYSTEMS: CARDIOPULMONARY: No chest pain or shortness of breath. : No dysuria, no hematuria. MUSCULOSKELETAL: Unremarkable., SKIN: Unremarkable. ENDOCRINE: Unremarkable. PSYCHIATRIC: Unremarkable. NEUROLOGY: Unremarkable. ENT/VISION: Unremarkable. CONSTITUTIONAL: No recent weight loss. No fever, chills, night sweats. PHYSICAL EXAMINATION: He appears comfortable. No apparent distress. Vital signs are stable. Blood pressure is 133/86, pulse rate 58 temperature 95. HEENT examination unremarkable. Conjunctivae pink, sclerae anicteric. Oral cavity no lesions. No JVD or lymph node enlargement. CHEST was clear to auscultation. HEART: Regular rate and rhythm. ABDOMEN: Soft. Bowel sounds are positive. No organomegaly. EXTREMITIES; No pedal edema. NEURO: He is alert and oriented x3. No focal deficits. LABS: No labs were done. IMPRESSION: 1. This is a patient who presented to the hospital with chest pain and odynophagia after eating a sandwich toothpick last night for dinner. CT of the chest and chest x-rays are unremarkable. He does not have any dysphagia at the current time. Rule out possibility of a toothpick impaction in the esophagus. 2. History of hypertension and diabetes mellitus. 3. History of hypercholesteremia. RECOMMENDATIONS: I had a lengthy discussion with the patient and at this time we will proceed with EGD to evaluate further. I discussed with him risks, benefits and complications and he is agreeable to it. Thank you for this consultation. MMODL / IJN: [id number] /
== END 2020-11-20 13:55 | disposition home or self-care (01) ==
LOC: EC 06:45
DX: T18.198A Other foreign object in esophagus causing other injury, initial encounter (principal); I10 Essential (primary) hypertension; E78.5 Hyperlipidemia, unspecified; E11.9 Type 2 diabetes mellitus without complications; E78.00 Pure hypercholesterolemia, unspecified; Z79.899 Other long term (current) drug therapy; Z79.84 Long term (current) use of oral hypoglycemic drugs; Z79.82 Long term (current) use of aspirin; Z98.890 Other specified postprocedural states; Z88.8 Allergy status to other drugs, medicaments and biological substances; X58.XXXA Exposure to other specified factors, initial encounter
CPT/HCPCS: 93005; 88305; 71046; 74018; 71250; 74176; 43239; 99284; J2704

== ENCOUNTER → 2021-10-12 | Outpatient (CLI) | payer BC ==
--- NOTE | 2021-10-12 16:01 | CT ---
EXAMINATION TYPE: CT heart w calcium score DATE OF EXAM: 10/12/2021 COMPARISON: None HISTORY: 65-year-old male Screening for cardiovascular disorder. Z13.9 CT DLP: 44.8 mGycm Automated exposure control for dose reduction was used. CT CALCIUM SCORING Coronary calcium is a marker for plaque (fatty deposits) in a blood vessel or atherosclerosis (harden ing of the arteries). The presence and amount of calcium detected in a coronary artery by the CT sca n, indicates the presence and amount of atherosclerotic plaque. These calcium deposits appear years before the development of heart disease symptoms such as chest pain and shortness of breath. A calcium score is computed for each of the coronary arteries based upon the volume and density of th e calcium deposits. This can be referred to as your calcified plaque burden. It does not correspond directly to the percentage of narrowing in the artery but does correlate with the severity of the un derlying coronary atherosclerosis. PROCEDURE TECHNIQUE - Prospective Gating was used. Slice thickness: 3mm. Density threshold (HU): 130, Pixel threshold: 3, Algorithm: discrete. RESULTS Region: LM Calcium Score ([place]): 0 Volume (mm3): 0 Region: RCA Calcium Score ([place]): 0 Volume (mm3): 0 Region: LAD Calcium Score ([place]): 13.8 Volume (mm3): 13.8 Region: CX Calcium Score ([place]): 0 Volume (mm3): 0 Region: PDA Calcium Score ([place]): 0 Volume (mm3): 0 Total: Calcium Score ([place]): 13.8 Volume (mm3): 13.8 INCIDENT: Tiny hernia may be present. IMPRESSION: Calcium Score: 13.8 Implication: Definite, at least mild atherosclerotic plaque. Risk of Coronary Artery Disease: Mild or minimal coronary narrowings likely. CALCIUM SCORE IMPLICATION RISK OF C ORONARY ARTERY DISEASE 0 No identifiable plaque Very low, generally less than 5% 1-10 Minimal identifiable plaque Very unlikely, less than 10% 11-100 Definite, at least mild atherosclerotic plaque Mild or m inimal coronary narrowings likely 101-400 Definite, at least moderate atherosclerotic plaque Mild coronary ar toro disease highly likely, significant narrowing possible 401 or Higher Extensive atherosclerotic plaque High lik elihood of at least one significant coronary narrowing
== END | disposition home or self-care (01) ==
LOC: RADCTMAIN 14:30
PROVIDERS: ATTEND Family Medicine
DX: Z13.6 Encounter for screening for cardiovascular disorders (principal); I25.10 Atherosclerotic heart disease of native coronary artery without angina pectoris
CPT/HCPCS: 75571